=== PATIENT | female | born 1965 | race Caucasian/White ===

== ENCOUNTER 2025-05-09 18:27 | Inpatient (IN) | payer OTHER ==
[~2025-05-09] VITALS: Ht 172.7 cm; Wt 62.7 kg
[2025-05-09 19:31] LABS: PLATELET COUNT (AUTO) 293 K/uL (150-450); RED BLOOD CELL COUNT(AUTO) 4.58 MIL/uL (4.00-5.20); RED CELL DISTRIBUTION WIDTH 13.6 % (11.5-14.5); WHITE BLOOD COUNT (AUTO) 5.4 K/uL (4.5-11.0)
[2025-05-09 19:35] LABS: CALCIUM, TOTAL 8.3 mg/dL (8.8-10.5); CREATININE 0.66 mg/dL (0.60-1.30); GLOMERULAR FILTR. RATE CALC > 60 mL/min (>60); GLUCOSE,RANDOM 113 mg/dL (70-110); SODIUM SERUM 133 mmol/L (136-145); UREA NITROGEN, BLOOD 10 mg/dL (7-18)
[2025-05-09 19:44] LABS: ALCOHOL, BLOOD (SERUM) < 3 mg/dL (0-10)
[2025-05-09 19:46] LABS: ASPARTATE AMINOTRANSFERASE 19 U/L (15-37); TOTAL PROTEIN, SERUM 7.5 g/dL (6.4-8.2)
[2025-05-09] MEDS: SODIUM CHLORIDE 0.9% 1,000 ML IV ONE (19:51)
[2025-05-09] MEDS: AMOX TR/POT CLAV 875 MG/125 MG TABLET PO ONE (19:51)
[2025-05-09] MEDS: ONDANSETRON HCL 4 MG/2 ML VIAL IVP ONE (19:51)
[2025-05-09] MEDS: FAMOTIDINE 20 MG/2 ML VIAL IVP ONE (19:51)
[2025-05-09 19:52] LABS: COVID AG,FIA SOURCE NASAL SWAB
[2025-05-09 20:12] LABS: INFLUENZA TYPE A NEGATIVE FOR TYPE A (NEGATIVE); INFLUENZA TYPE B NEGATIVE FOR TYPE B (NEGATIVE); SARS-COV2 (COVID) ANTIGEN,FIA Negative (Negative)
[2025-05-09] MEDS: OFLOXACIN 0.3% 5 ML OTIC SOLUTION AS SCH (20:33)
[2025-05-09] MEDS: *CLINICAL-LEVOFLOXACIN IVPB DOSING CLINICAL ONE (20:59)
[2025-05-09] MEDS ORDERED: ACETAMINOPHEN 325 MG TABLET PO PRN (21:00)
[2025-05-09] MEDS ORDERED: BISACODYL 10 MG RECTAL RECTAL SUPPOSITORY PR PRN (21:00)
[2025-05-09] MEDS ORDERED: ONDANSETRON HCL 4 MG/2 ML VIAL IVP PRN (21:00)
[2025-05-09] MEDS ORDERED: MAGNESIUM HYDROXIDE SUSPENSION 30 ML UDCUP PO PRN (21:00)
[2025-05-09] MEDS ORDERED: MORPHINE SULFATE 4 MG/ML SYRINGE IVP PRN (21:00)
[2025-05-09] MEDS: DOCUSATE SODIUM 100 MG CAPSULE PO SCH (21:00)
[2025-05-09] MEDS: OFLOXACIN 0.3% 5 ML OTIC SOLUTION AU SCH (21:00)
[2025-05-09] MEDS ORDERED: HYDROCODONE/ACETAMINOPHEN 5-325 MG TABLET PO PRN (21:00)
[2025-05-09] MEDS: CLINDAMYCIN 600 MG/D5% WATER 50 ML IV SCH (21:32)
[2025-05-09 21:50] LABS: APPEARANCE,URINE CLEAR (CLEAR); GLUCOSE, URINE (UA) NEGATIVE (NEGATIVE); LEUKOCYTE ESTERASE ,URINE MODERATE (NEGATIVE); NITRATE,URINE NEGATIVE (NEGATIVE); OCCULT BLOOD,URINE NEGATIVE (NEGATIVE); PH,URINE DRUG SCREEN 6.0 (5.0-8.0); SPECIFIC GRAVITIY, URINE 1.011 (1.003-1.030)
[2025-05-09 21:56] LABS: AMPHET/METH SCREEN,URINE NEGATIVE (NEGATIVE); BARBITURATE SCREEN, URINE NEGATIVE (NEGATIVE); CANNABINOID SCREEN,URINE NEGATIVE (NEGATIVE); COCAINE SCREEN,URINE NEGATIVE (NEGATIVE); METHADONE SCREEN, URINE NEGATIVE (NEGATIVE)
[2025-05-09 21:58] LABS: ALCOHOL, URINE DRUG SCREEN NEGATIVE (NEGATIVE); SQUAMOUS EPITHELIAL CELL,UR Few /LPF (None Seen)
[2025-05-09 23:50] VITALS: BP 109/75; PULSE 69; RESP 17; TEMP 98.2; O2SAT 98
[2025-05-10] MEDS ORDERED: SODIUM CHLORIDE 0.9% 500 ML IV ONE (00:18)
[2025-05-10] MEDS: LEVOFLOXACIN 750 MG/D5% WATER 150 ML IV SCH (00:20)
[2025-05-10] MEDS: HEPARIN SODIUM,PORCINE 5,000 UNITS/ML VIAL SQ SCH (00:24)
[2025-05-10 04:34] VITALS: BP 108/71; PULSE 80; RESP 17; TEMP 97.9; O2SAT 97
[2025-05-10 06:33] LABS: PLATELET COUNT (AUTO) 271 K/uL (150-450); RED BLOOD CELL COUNT(AUTO) 4.16 MIL/uL (4.00-5.20); RED CELL DISTRIBUTION WIDTH 13.6 % (11.5-14.5); WHITE BLOOD COUNT (AUTO) 2.7 K/uL (4.5-11.0)
[2025-05-10 06:51] LABS: CALCIUM, TOTAL 7.8 mg/dL (8.8-10.5); CREATININE 0.56 mg/dL (0.60-1.30); GLOMERULAR FILTR. RATE CALC > 60 mL/min (>60); GLUCOSE,RANDOM 108 mg/dL (70-110); SODIUM SERUM 138 mmol/L (136-145); UREA NITROGEN, BLOOD 7 mg/dL (7-18)
[2025-05-10 08:18] VITALS: BP 103/70; PULSE 84; RESP 18; TEMP 99.5; O2SAT 96
[2025-05-10] MEDS: PANTOPRAZOLE SODIUM 40 MG DR TABLET PO SCH (08:53)
[2025-05-10 19:44] VITALS: BP 120/69; PULSE 82; RESP 20; TEMP 97.7; O2SAT 94
[2025-05-10] MEDS: ZOLPIDEM TARTRATE 5 MG TABLET PO PRN (20:45)
[2025-05-11 06:36] VITALS: BP 118/68; PULSE 79; RESP 18; TEMP 98.2; O2SAT 98
[2025-05-11 07:24] LABS: PLATELET COUNT (AUTO) 290 K/uL (150-450); RED BLOOD CELL COUNT(AUTO) 4.54 MIL/uL (4.00-5.20); RED CELL DISTRIBUTION WIDTH 13.6 % (11.5-14.5); WHITE BLOOD COUNT (AUTO) 2.9 K/uL (4.5-11.0)
[2025-05-11 07:30] VITALS: BP 108/85; PULSE 80; RESP 18; TEMP 97.9; O2SAT 99
[2025-05-11 07:35] LABS: CALCIUM, TOTAL 8.1 mg/dL (8.8-10.5); CREATININE 0.50 mg/dL (0.60-1.30); GLOMERULAR FILTR. RATE CALC > 60 mL/min (>60); GLUCOSE,RANDOM 105 mg/dL (70-110); SODIUM SERUM 137 mmol/L (136-145); UREA NITROGEN, BLOOD 10 mg/dL (7-18)
[2025-05-11] MEDS ORDERED: CLIN300C58 PO (14:49)
[2025-05-11] MEDS ORDERED: LEVO750T68 PO (14:50)
[2025-05-11] MEDS ORDERED: OFLO5DRO4 AU (14:55)
== END 2025-05-11 17:45 | DRG 641 ==
LOC: EMS 18:31 → EDH 20:47 → 6S 23:45
PROVIDERS: ADMIT Internal Medicine; ATTEND Internal Medicine
DX: E87.1 Hypo-osmolality and hyponatremia (principal); Z20.822 Contact with and (suspected) exposure to COVID-19; E86.0 Dehydration; H66.92 Otitis media, unspecified, left ear
CPT/HCPCS: 80048; 80076; 80307; 81001; 83690; 83735; 85025; 87086; 87804; 93005; 96361; 96374; 96375; 99285; G0480; J1644; J1956; J2405; J3490; J7030; J7040; 36415-L1; 36415-TC

== ENCOUNTER 2025-05-25 07:21 | Inpatient (IN) | payer MEDICAID, OTHER ==
[~2025-05-25] VITALS: Ht 170.2 cm; Wt 63.4 kg
[~2025-05-25 07:21] MED LIST: CLIN300C58 PO; LEVO750T68 PO; OFLO5DRO4 AU
[2025-05-25 08:06] LABS: COVID AG,FIA SOURCE NASAL SWAB
[2025-05-25 08:09] LABS: PLATELET COUNT (AUTO) 303 K/uL (150-450); RED BLOOD CELL COUNT(AUTO) 4.40 MIL/uL (4.00-5.20); RED CELL DISTRIBUTION WIDTH 13.7 % (11.5-14.5); WHITE BLOOD COUNT (AUTO) 19.5 K/uL (4.5-11.0)
[2025-05-25 08:11] LABS: RBC MORPHOLOGY COMMENT NORMAL RBC MORPH
[2025-05-25 08:19] LABS: CALCIUM, TOTAL 8.5 mg/dL (8.8-10.5); CREATININE 0.78 mg/dL (0.60-1.30); GLOMERULAR FILTR. RATE CALC > 60 mL/min (>60); GLUCOSE,RANDOM 129 mg/dL (70-110); SODIUM SERUM 136 mmol/L (136-145); UREA NITROGEN, BLOOD 16 mg/dL (7-18)
[2025-05-25 09:16] LABS: INFLUENZA TYPE A NEGATIVE FOR TYPE A (NEGATIVE); INFLUENZA TYPE B NEGATIVE FOR TYPE B (NEGATIVE); SARS-COV2 (COVID) ANTIGEN,FIA Negative (Negative)
[2025-05-25] MEDS: SODIUM CHLORIDE 0.9% 1,900 ML IV ONE (09:45)
[2025-05-25] MEDS: ONDANSETRON HCL 4 MG/2 ML VIAL IVP ONE (11:12)
[2025-05-25] MEDS: ACETAMINOPHEN 500 MG TABLET PO ONE (13:16)
[2025-05-25] MEDS: CefTRIAXone 1 GM/DEXTROSE 50 ML IV ONE (13:53)
[2025-05-25 15:00] VITALS: BP 119/72; PULSE 100; RESP 17; TEMP 99.1; O2SAT 98
[2025-05-25] MEDS ORDERED: ZOLPIDEM TARTRATE 5 MG TABLET PO PRN (15:00)
[2025-05-25] MEDS ORDERED: MAGNESIUM HYDROXIDE SUSPENSION 30 ML UDCUP PO PRN (15:00)
[2025-05-25] MEDS ORDERED: ACETAMINOPHEN 325 MG TABLET PO PRN (15:00)
[2025-05-25] MEDS ORDERED: BISACODYL 10 MG RECTAL RECTAL SUPPOSITORY PR PRN (15:00)
[2025-05-25] MEDS ORDERED: MORPHINE SULFATE 4 MG/ML SYRINGE IVP PRN (15:00)
[2025-05-25] MEDS ORDERED: ONDANSETRON HCL 4 MG/2 ML VIAL IVP PRN (15:00)
[2025-05-25] MEDS: HEPARIN SODIUM,PORCINE 5,000 UNITS/ML VIAL SQ SCH (16:00)
[2025-05-25] MEDS ORDERED: PIPERACILLIN/TAZO 3.375 GM/D5W 50 ML IV ONE (16:00)
[2025-05-25] MEDS ORDERED: PIPERACILLIN/TAZO 3.375 GM/D5W 50 ML IV SCH (17:00)
[2025-05-25 17:53] LABS: C.DIFF GDH ANTIGEN, Stool Positive (Negative)
[2025-05-25 17:54] LABS: C.DIFF TOXINS A&B, Stool Positive (Negative)
[2025-05-25] MEDS: VANCOMYCIN HCL 250 MG/5 ML SOLUTION ORAL.SYG PO SCH (18:43)
[2025-05-25] MEDS: DEXTROSE 5%-0.45% SODIUM CHL 1,000 ML IV ONE (18:44)
[2025-05-25 20:00] VITALS: BP 107/69; PULSE 98; RESP 18; TEMP 98.2; O2SAT 95
[2025-05-25] MEDS: DOCUSATE SODIUM 100 MG CAPSULE PO SCH (20:11)
[2025-05-26] MEDS: HYDROCODONE/ACETAMINOPHEN 5-325 MG TABLET PO PRN (01:25)
[2025-05-26 04:35] VITALS: BP 113/73; PULSE 88; RESP 18; TEMP 98.4; O2SAT 95
[2025-05-26 07:54] LABS: PLATELET COUNT (AUTO) 267 K/uL (150-450); RED BLOOD CELL COUNT(AUTO) 4.13 MIL/uL (4.00-5.20); RED CELL DISTRIBUTION WIDTH 13.6 % (11.5-14.5); WHITE BLOOD COUNT (AUTO) 8.8 K/uL (4.5-11.0)
[2025-05-26 08:03] LABS: CALCIUM, TOTAL 8.1 mg/dL (8.8-10.5); CREATININE 0.52 mg/dL (0.60-1.30); GLOMERULAR FILTR. RATE CALC > 60 mL/min (>60); GLUCOSE,RANDOM 116 mg/dL (70-110); SODIUM SERUM 137 mmol/L (136-145); UREA NITROGEN, BLOOD 5 mg/dL (7-18)
[2025-05-26] MEDS: PANTOPRAZOLE SODIUM 40 MG DR TABLET PO SCH (08:13)
[2025-05-26 09:06] VITALS: BP 113/70; PULSE 81; RESP 18; TEMP 97.7; O2SAT 100
[2025-05-26 10:21] VITALS: BP 121/79; PULSE 76; RESP 18; O2SAT 97
[2025-05-26] MEDS: SODIUM CHLORIDE 0.9% 1,000 ML IV ONE (11:06)
[2025-05-26 16:00] VITALS: BP 120/76; PULSE 85; RESP 17; TEMP 98.4; O2SAT 93
[2025-05-26 18:19] VITALS: BP 119/82; PULSE 88; RESP 16; O2SAT 95
[2025-05-26 20:23] VITALS: BP 106/73; PULSE 86; RESP 18; TEMP 98.6; O2SAT 96
[2025-05-27 04:32] VITALS: BP 112/75; PULSE 80; RESP 18; TEMP 97.9; O2SAT 97
[2025-05-27 07:30] VITALS: BP 117/76; PULSE 82; RESP 16; TEMP 97.7; O2SAT 95
[2025-05-27 08:02] LABS: PLATELET COUNT (AUTO) 277 K/uL (150-450); RED BLOOD CELL COUNT(AUTO) 4.07 MIL/uL (4.00-5.20); RED CELL DISTRIBUTION WIDTH 13.4 % (11.5-14.5); WHITE BLOOD COUNT (AUTO) 4.9 K/uL (4.5-11.0)
[2025-05-27 08:14] LABS: CALCIUM, TOTAL 8.2 mg/dL (8.8-10.5); CREATININE 0.42 mg/dL (0.60-1.30); GLOMERULAR FILTR. RATE CALC > 60 mL/min (>60); GLUCOSE,RANDOM 101 mg/dL (70-110); SODIUM SERUM 141 mmol/L (136-145); UREA NITROGEN, BLOOD 3 mg/dL (7-18)
[2025-05-27] MEDS: LACTOBACILLUS ACIDOPHILUS/BULGARICUS GRANULES PACKET PO SCH (09:42)
[2025-05-27] MEDS: SODIUM CHLORIDE 0.9% 1,000 ML IV ONE (09:43)
[2025-05-27 16:00] VITALS: BP 114/77; PULSE 79; RESP 17; TEMP 98; O2SAT 98
[2025-05-27 20:00] VITALS: BP 130/76; PULSE 80; RESP 18; TEMP 98; O2SAT 95
[2025-05-28 06:10] VITALS: BP 116/91; PULSE 78; RESP 18; TEMP 98.6; O2SAT 97
[2025-05-28 07:33] LABS: PLATELET COUNT (AUTO) 325 K/uL (150-450); RED BLOOD CELL COUNT(AUTO) 4.28 MIL/uL (4.00-5.20); RED CELL DISTRIBUTION WIDTH 13.6 % (11.5-14.5); WHITE BLOOD COUNT (AUTO) 4.4 K/uL (4.5-11.0)
[2025-05-28 07:38] LABS: CALCIUM, TOTAL 8.5 mg/dL (8.8-10.5); CREATININE 0.43 mg/dL (0.60-1.30); GLOMERULAR FILTR. RATE CALC > 60 mL/min (>60); GLUCOSE,RANDOM 93 mg/dL (70-110); SODIUM SERUM 140 mmol/L (136-145); UREA NITROGEN, BLOOD 5 mg/dL (7-18)
[2025-05-28 08:47] VITALS: BP 115/72; PULSE 80; RESP 18; TEMP 98.4; O2SAT 98
[2025-05-28 19:55] VITALS: BP 110/72; PULSE 79; RESP 18; TEMP 98.1; O2SAT 98
[2025-05-29 05:14] VITALS: BP 105/71; PULSE 76; RESP 18; TEMP 98.1; O2SAT 99
[2025-05-29] MEDS: DOCUSATE SODIUM 100 MG CAPSULE PO PRN (07:43)
[2025-05-29 07:47] VITALS: BP 111/90; PULSE 88; RESP 18; TEMP 98.8
[2025-05-29] MEDS ORDERED: ACID1GRA PO (17:26)
[2025-05-29] MEDS ORDERED: VANCOPO PO (17:28)
[2025-05-29] MEDS ORDERED: LOPE-232 PO (17:29)
[2025-05-29 20:23] VITALS: BP 112/55; PULSE 83; RESP 18; TEMP 98; O2SAT 99
[2025-05-30 04:07] VITALS: BP 107/71; PULSE 77; RESP 17; TEMP 98.1; O2SAT 95
[2025-05-30 08:13] VITALS: BP 97/59; PULSE 85; RESP 16; TEMP 99.9; O2SAT 99
[2025-05-30 16:33] VITALS: BP 113/78; PULSE 90; RESP 16; TEMP 98.8; O2SAT 100
[2025-05-30 20:37] VITALS: BP 98/60; PULSE 85; RESP 17; TEMP 97.9; O2SAT 98
[2025-05-31 05:17] VITALS: BP 103/71; PULSE 83; RESP 18; TEMP 98.1; O2SAT 95
[2025-05-31 08:38] VITALS: BP 111/67; PULSE 92; RESP 18; TEMP 98.6; O2SAT 100
[2025-05-31 20:00] VITALS: BP 115/73; PULSE 86; RESP 18; TEMP 98.1; O2SAT 100
[2025-06-01 04:00] VITALS: BP 103/68; PULSE 84; RESP 18; TEMP 98.1; O2SAT 97
[2025-06-01 07:49] LABS: PLATELET COUNT (AUTO) 408 K/uL (150-450); RED BLOOD CELL COUNT(AUTO) 4.77 MIL/uL (4.00-5.20); RED CELL DISTRIBUTION WIDTH 13.7 % (11.5-14.5); WHITE BLOOD COUNT (AUTO) 5.8 K/uL (4.5-11.0)
[2025-06-01 08:04] LABS: CALCIUM, TOTAL 9.1 mg/dL (8.8-10.5); CREATININE 0.58 mg/dL (0.60-1.30); GLOMERULAR FILTR. RATE CALC > 60 mL/min (>60); GLUCOSE,RANDOM 102 mg/dL (70-110); SODIUM SERUM 136 mmol/L (136-145); UREA NITROGEN, BLOOD 11 mg/dL (7-18)
[2025-06-01 08:55] VITALS: BP 107/65; PULSE 82; RESP 18; TEMP 97.8; O2SAT 100
[2025-06-01 20:33] VITALS: BP 100/70; PULSE 95; RESP 18; TEMP 98.2; O2SAT 97
[2025-06-02 05:49] VITALS: BP 99/69; PULSE 88; RESP 18; TEMP 98.6; O2SAT 97
[2025-06-02 07:20] VITALS: BP 106/75; PULSE 81; RESP 18; TEMP 98.1; O2SAT 95
== END 2025-06-02 17:30 | DRG 872 ==
LOC: EMS 07:21 → EDH 11:10 → 4S 15:04
PROVIDERS: ADMIT Internal Medicine; ATTEND Internal Medicine
DX: A41.9 Sepsis, unspecified organism (principal); A04.72 Enterocolitis due to Clostridium difficile, not specified as recurrent; E86.0 Dehydration; Z79.899 Other long term (current) drug therapy; Z20.822 Contact with and (suspected) exposure to COVID-19
CPT/HCPCS: 71045; 74176; 80048; 83735; 85025; 87040; 87081; 87324; 87449; 87804; 93005; 96361; 96365; 96375; 99285; G0378; J0696; J1644; J2405; J2543; J7030; 36415-L1; 36415-TC